=== PATIENT | male | born 1950 | race Hispanic/Latino ===

== ENCOUNTER 2019-02-28 11:32 | Emergency (ER) | payer SELFPAY ==
[2019-02-28 12:21] LABS: Absolute Lymphocytes (CBC) 1.1 K/uL (0.7-4.9); Basophils % 0.8 % (0-1.3); Eosinophils % 1.5 % (0-4.4); Lymphocytes % 28.9 % (15.3-44.8); Monocytes % 11.5 % (3.3-12.3); Protime INR 1.22; RBC Red Blood Cell Count 4.62 M/uL (4.33-5.43)
[2019-02-28 12:35] LABS: ALT/SGPT 34 U/L (12-78); AST/SGOT 34 U/L (15-37); Albumin 3.9 g/dL (3.4-5.0); Alkaline Phosphatase 76 U/L (45-117); BUN Blood Urea Nitrogen 15 mg/dL (7-18); Bicarbonate 26 mmol/L (21-32); Bilirubin Direct 0.3 mg/dL (0-0.2); Bilirubin Total 1.4 mg/dL (0.2-1.0); Glucose Level 88 mg/dL (74-106); Magnesium 2.1 mg/dL (1.8-2.4); NT PRO-BNP 189 pg/mL (<125); Potassium 3.8 mmol/L (3.5-5.1); Protein, Total 7.1 g/dL (6.4-8.2); Sodium Level 140 mmol/L (136-145); Troponin (Emerg Dept Use Only) < 0.02 ng/mL (0.0-0.045)
--- NOTE | 2019-02-28 12:52 | RAD REPORT ---
EXAM DESCRIPTION: RAD - Chest Single View - 02/28/2019 11:56 am CLINICAL HISTORY: Chest pain COMPARISON: None. TECHNIQUE: AP portable chest image was obtained 1143 hours . FINDINGS: Lungs are clear. Heart and vasculature are normal. No measurable pleural effusion and no p neumothorax. No acute bony abnormality seen. No acute aortic findings suspected. IMPRESSION: No acute cardiopulmonary process.
--- NOTE | 2019-02-28 14:35 | ER ---
Nurse's Notes [facility] Name: Humble Pandey Age: 68 yrs Sex: Male : 1950 Arrival Date: 02/28/2019 Time: 11:33 Bed 2 Private MD: Diagnosis: Chest pain, unspecified Presentation: 02/28 11:34 Presenting complaint: Patient states: "I was lifting 5 gallon pain buckets and right aa5 after I felt short of breath, dizzy, and had pain to the left side of my chest going around to the back but it only lasted a few seconds". Pt currently denies any symptoms. Transition of care: patient was not received from another setting of care. Onset of symptoms was February 28, 2019. Risk Assessment: Do you want to hurt yourself or someone else? Patient reports no desire to harm self or others. Initial Sepsis Screen: Does the patient meet any 2 criteria? No. Patient's initial sepsis screen is negative. Does the patient have a suspected source of infection? No. Patient's initial sepsis screen is negative. Care prior to arrival: None. 11:34 Method Of Arrival: EMS: [facility] aa5 11:34 Acuity: PAULA 3 aa5 Historical: - Allergies: 11:35 No Known Allergies; aa5 - Home Meds: 12:00 clopidogrel/aspirin 75mg/100mg PO [Active]; candersartan-hydrochlorothiazide aa5 16mg/12.5mg PO [Active]; rosuvastatin 20 mg oral tab [Active]; - PMHx: 11:35 Hypertension; Hyperlipidemia; aa5 - PSHx: 11:35 Heart stents; aa5 - Immunization history:: Adult Immunizations unknown. - Social history:: Smoking status: Patient/guardian denies using tobacco. - Ebola Screening: : No symptoms or risks identified at this time. Screenin:35 Abuse screen: Denies threats or abuse. Nutritional screening: No deficits noted. aa5 Tuberculosis screening: No symptoms or risk factors identified. Fall Risk None identified. Assessment: 11:34 General: Appears comfortable, Behavior is calm, cooperative. Pain: Denies pain. Neuro: aa5 Level of Consciousness is awake, alert, obeys commands, Oriented to person, place, time, situation. Cardiovascular: Heart tones S1 S2 present Rhythm is sinus bradycardia. Respiratory: Airway is patent Respiratory effort is even, unlabored, Respiratory pattern is regular, symmetrical, Breath sounds are clear bilaterally. GI: Abdomen is round non-distended, Bowel sounds present X 4 quads. Abd is soft and non tender X 4 quads. Patient currently denies nausea, vomiting. : No signs and/or symptoms were reported regarding the genitourinary system. EENT: No signs and/or symptoms were reported regarding the EENT system. Derm: Skin is dry, Skin is normal, Skin temperature is warm. Musculoskeletal: Range of motion: intact in all extremities. 12:15 Reassessment: Patient is alert, oriented x 3, equal unlabored respirations, skin aa5 warm/dry/pink. Patient denies pain at this time. 12:15 Cardiovascular: Rhythm is sinus bradycardia. aa5 13:00 Reassessment: Patient is alert, oriented x 3, equal unlabored respirations, skin aa5 warm/dry/pink. Patient denies pain at this time. 15:19 Pain: Pain does not radiate. Pain began. Vital Signs: 11:36 BP 150 / 88; Pulse 57; Resp 16 S; Temp 97.9(TE); Pulse Ox 99% on R/A; Weight 77.11 kg aa5 (R); Height 5 ft. 6 in. (167.64 cm) (R); Pain 0/10; 12:15 BP 153 / 71; Pulse 55; Resp 16 S; Pulse Ox 100% on R/A; Pain 0/10; aa5 13:00 BP 138 / 69; Pulse 50; Resp 16 S; Temp 98.2(TE); Pulse Ox 98% on R/A; Pain 0/10; aa5 11:36 Body Mass Index 27.44 (77.11 kg, 167.64 cm) aa5 ED Course: 11:33 Patient arrived in ED. 11:34 Emy Justice, RN is Primary Nurse. aa5 11:34 Arm band placed on Patient placed in an exam room, on a stretcher. aa5 11:34 Patient has correct armband on for positive identification. Placed in gown. Bed in low aa5 position. Call light in reach. Side rails up X2. 11:34 engine monitor on. Pulse ox on. NIBP on. aa5 11:36 Triage completed. aa5 11:39 Bin Stanford PA is PHCP. [facility] 11:39 Jhonny Dasilva MD is Attending Physician. m 11:56 XRAY Chest (1 view) In Process Unspecified. EDMS 12:00 Initial lab(s) drawn, by me, sent to lab. Inserted saline lock: 20 gauge in right aa5 antecubital area, using aseptic technique. Blood collected. 14:32 Sohan Murguia MD is Referral Physician. jmm 15:18 No provider procedures requiring assistance completed. IV discontinued, intact, hj bleeding controlled, No redness/swelling at site. Pressure dressing applied. Patient maintains SpO2 saturation greater than 95% on room air. Administered Medications: No medications were administered Outcome: 14:33 Discharge ordered by . jmm 15:18 Discharged to home ambulatory, with family. hj 15:18 Condition: stable 15:18 Discharge instructions given to patient, family, Instructed on discharge instructions, follow up and referral plans. Demonstrated understanding of instructions, follow-up care. 15:19 Patient left the ED. hj Signatures: Dispatcher [employer] EDMS Bin Stanford PA PA Emy Velarde, RN RN aa5 Kamlesh Christian RN RN hj Corrections: (The following items were deleted from the chart) 17:02 11:36 BP 150 / 88; Pulse 57bpm; Resp 16bpm; Spontaneous; Pulse Ox 99% RA; 77.11 kg aa5 Reported; Height 5 ft. 6 in. Reported; BMI: 27.4; Pain 0/10; aa5
--- NOTE | 2019-02-28 14:36 | EDPHYS ---
Physician Documentation [facility] Name: Humble Pandey Age: 68 yrs Sex: Male : 1950 Arrival Date: 02/28/2019 Time: 11:33 Bed 2 Private MD: ED Physician Jhonny Dasilva HPI: 02/28 11:45 This 68 yrs old Male presents to ER via EMS with complaints of Chest Pain. m 11:45 The patient or guardian reports chest pain that is located primarily in the substernal [facility] area. Onset: acutely, just prior to arrival. The pain radiates to the left scapula, left back. Associated signs and symptoms: Pertinent negatives: shortness of breath. The chest pain is described as sharp. Duration: The patient or guardian reports a single episode. Modifying factors: The symptoms are alleviated by nothing. the symptoms are aggravated by nothing. This is a 68 year old female with a history of htn, hlp, cad that presents to the ED with complaints of chest pain which occurred while lifting at work. Patient states the chest pain last for a few seconds and radiated to his back. Denies shortness of breath, denies abdominal pain, denies leg weakness. Patient states symptoms are now completely resolved. . Historical: - Allergies: 11:35 No Known Allergies; aa5 - Home Meds: 12:00 clopidogrel/aspirin 75mg/100mg PO [Active]; candersartan-hydrochlorothiazide aa5 16mg/12.5mg PO [Active]; rosuvastatin 20 mg oral tab [Active]; - PMHx: 11:35 Hypertension; Hyperlipidemia; aa5 - PSHx: 11:35 Heart stents; aa5 - Immunization history:: Adult Immunizations unknown. - Social history:: Smoking status: Patient/guardian denies using tobacco. - Ebola Screening: : No symptoms or risks identified at this time. ROS: 11:45 Constitutional: Negative for fever, chills, and weight loss. jmm 11:45 Respiratory: Negative for shortness of breath, cough, wheezing, and pleuritic chest pain, Abdomen/GI: Negative for abdominal pain, nausea, vomiting, diarrhea, and constipation. 11:45 MS/Extremity: Negative for injury and deformity, Skin: Negative for injury, rash, and discoloration, Neuro: Negative for headache, weakness, numbness, tingling, and seizure. 11:45 Cardiovascular: Positive for chest pain. 11:45 Back: Positive for radiated pain. 11:45 All other systems are negative. Exam: 11:45 Constitutional: This is a well developed, well nourished patient who is awake, alert, jmm and in no acute distress. Head/Face: atraumatic. Eyes: EOMI, no conjunctival erythema appreciated ENT: Moist Mucus Membranes Neck: Trachea midline, Supple Chest/axilla: Normal chest wall appearance and motion. Cardiovascular: Regular rate and rhythm. No edema appreciated Respiratory: Normal respirations, no respiratory distress appreciated Abdomen/GI: Non distended, soft Back: Normal ROM 11:45 Skin: General appearance color normal MS/ Extremity: Moves all extremities, no obvious deformities appreciated, no edema noted to the lower extremities Neuro: Awake and alert, normal gait Psych: Behavior is normal, Mood is normal, Patient is cooperative and pleasant 11:45 Cardiovascular: Rate: normal, Rhythm: regular, Pulses: no pulse deficits are appreciated. Vital Signs: 11:36 BP 150 / 88; Pulse 57; Resp 16 S; Temp 97.9(TE); Pulse Ox 99% on R/A; Weight 77.11 kg aa5 (R); Height 5 ft. 6 in. (167.64 cm) (R); Pain 0/10; 12:15 BP 153 / 71; Pulse 55; Resp 16 S; Pulse Ox 100% on R/A; Pain 0/10; aa5 13:00 BP 138 / 69; Pulse 50; Resp 16 S; Temp 98.2(TE); Pulse Ox 98% on R/A; Pain 0/10; aa5 11:36 Body Mass Index 27.44 (77.11 kg, 167.64 cm) aa5 MDM: 11:45 Patient medically screened. [facility] 14:30 Data reviewed: vital signs, nurses notes. Counseling: I had a detailed discussion with antonio the patient and/or guardian regarding: the historical points, exam findings, and any diagnostic results supporting the discharge/admit diagnosis, lab results, the need for outpatient follow up, to return to the emergency department if symptoms worsen or persist or if there are any questions or concerns that arise at home. ED course: I discussed the patient with Dr. Mora whom consulted Dr. Murguia whom advised to follow up in clinic on Saturday. Patient was otherwise given strict return precautions. Patient understood and agrees with the plan of care. . 02/28 11:46 Order name: Basic Metabolic Panel [facility] 02/28 11:46 Order name: CBC with Diff; Complete Time: 12:[address] [facility] 02/28 11:46 Order name: LFT's; Complete Time: 12:[address] [facility] 02/28 11:46 Order name: Magnesium; Complete Time: 12:[address] [facility] 02/28 11:46 Order name: NT PRO-BNP; Complete Time: 12:[address] [facility] 02/28 11:46 Order name: PT-INR; Complete Time: 12:[address] [facility] 02/28 11:46 Order name: Troponin (emerg Dept Use Only); Complete Time: 12:[address] [facility] 02/28 11:46 Order name: XRAY Chest (1 view); Complete Time: 12:[address] [facility] 02/28 11:46 Order name: EKG; Complete Time: 11:[address] [facility] 02/28 11:46 Order name: Cardiac monitoring; Complete Time: 12:[address] [facility] 02/28 11:46 Order name: EKG - Nurse/Tech; Complete Time: 12:[address] [facility] 02/28 11:46 Order name: IV Saline Lock; Complete Time: 12:[address] [facility] 02/28 11:46 Order name: Labs collected and sent; Complete Time: 12:[address] [facility] 02/28 11:48 Order name: Basic Metabolic Panel; Complete Time: 12:43 [facility] 02/28 11:46 Order name: O2 Per Protocol; Complete Time: 12:[address] [facility] 02/28 11:46 Order name: O2 Sat Monitoring; Complete Time: 12:[address] [facility] Administered Medications: No medications were administered Disposition: 02/28/19 14:33 Discharged to Home. Impression: Chest pain, unspecified. - Condition is Stable. - Discharge Instructions: Nonspecific Chest Pain. - Medication Reconciliation Form, Thank You Letter, Antibiotic Education, Prescription Opioid Use form. - Follow up: Sohan Murguia MD; When: 03/02/2019; Reason: Recheck today's complaints. Addendum: 03/02/2019 09:41 Co-signature as Attending Physician, Jhonny Dasilva MD I agree with the assessment and c lubin plan of care. Signatures: Dispatcher [employer] EDJhonny De Los Santos MD MD cha Mickail, Joel, PA PA jmm Calderon, Audri, RN RN aa5 Kamlesh Christian RN RN hj Corrections: (The following items were deleted from the chart) 02/28 15:19 14:33 02/28/2019 14:33 Discharged to Home. Impression: Chest pain, unspecified. hj Condition is Stable. Forms are Medication Reconciliation Form, Thank You Letter, Antibiotic Education, Prescription Opioid Use. Follow up: Sohan Murguia; When: 03/02/2019; Reason: Recheck today's complaints. antonio
--- NOTE | 2019-02-28 15:40 | P.CNS ---
Date of Consult: 02/28/19 This is a 68-year-old male with past medical history of CAD, status post with cardiac catheterization and stent placement in September of 2018 in [place], hypertension, hyperlipidemia who presents to the emergency room with 1 episode of sharp chest pain located more in the back without radiation elsewhere. No alleviating or exacerbating factors. Associated with vague shortness of breath. This happened after lifting some equipment outside in the heat. Per patient, stated that he could barely catch his breath. He was seen at the medic at work and his blood pressure was elevated at that time. Patient' s symptoms of chest pain and vague shortness of breath resolved prior to coming to our ER. He was brought to the ER via EMS from his workplace. In the ER, he was hemodynamically stable, blood pressure was controlled. His labs were unremarkable. Initial troponin was negative. Initial EKG with nonspecific changes. Chest x-ray was negative for any acute abnormalities. He was evaluated and examined at bedside in the ER by me. He remained symptom free, hemodynamically stable and unremarkable physical exam. Case was discussed with Dr. Murguia, cardiology. Patient does have a HEART score 5 due to his risk factors. 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 on 03/02/2019 for further evaluation. As patient is stable, no required meds for admission at this time. Patient can be safely discharged home from the emergency room with return strict return to ER precautions.
--- NOTE | 2019-03-02 07:57 | EKG ---
Test Date: 2019-02-28 Test Time: 11:36:03 [employer]er Furniture: MAURY MEASUREMENT RESULTS: Intervals: Rate: 56 MA: 162 QRSD: 108 QT: 454 QTc: 438 [place]: P: 56 MA: 162 QRS: -6 T: 58 INTERPRETIVE STATEMENTS: Sinus bradycardia with occasional premature ventricular complexes Incomplete right bundle branch block Nonspecific T wave abnormality Abnormal ECG No previous ECG available for comparison Electronically Signed On 03-02-19 07:54:54 CDT by Callum Ferguson
== END 2019-02-28 15:19 | disposition home or self-care (01) ==
LOC: ER 11:32
DX: R07.9 Chest pain, unspecified (principal); I10 Essential (primary) hypertension; E78.5 Hyperlipidemia, unspecified; Z79.82 Long term (current) use of aspirin; Z95.818 Presence of other cardiac implants and grafts
CPT/HCPCS: 36415; 71045; 80048; 80076; 83735; 83880; 84484; 85025; 85610; 93005; 99285